=== PATIENT | female | born 1935 | race Caucasian/White ===

== ENCOUNTER 2018-11-10 04:33 | Emergency (ER) | payer MEDICARE, SELFPAY ==
[2018-11-10 04:34] VITALS: PULSE 81; RESP 18; TEMP 36.5; O2SAT 95; BMI 31.7
--- NOTE | 2018-11-10 05:03 | EKG12_ITS ---
Test Reason : COUGH Blood Pressure : / mmHG Vent. Rate : 074 BPM Atrial Rate : 074 BPM P-R Int : 238 ms QRS Dur : 090 ms QT Int : 406 ms P-R-T Axes : 044 016 049 degrees QTc Int : 450 ms Sinus rhythm with 1st degree A-V block Otherwise normal ECG Confirmed by EMIL GALVAN, BHAVYA ([id number]), editorial intern VICENTA MARCELINO ([id number]) on 11/14/2018 10:56:01 AM Referred By: SCOOTER Confirmed By:BHAVYA STEIN MD
--- NOTE | 2018-11-10 05:03 | CT_ITS ---
STUDY: CTA CHEST REASON FOR EXAM: Female, 83 years old. Dyspnea, cough x3 weeks, weakness, diagnosed with pneumonia. RADIATION DOSAGE (If Supplied By Facility): CTDIvol = ( 10.31 ) mGy, DLP = ( 410.48 ) mGycm TECHNIQUE: The examination was performed with the intravenous administration of 100CC IV Isovue 370. Post-processing of the angiographic images was performed, with multiplanar reformation and 3D reconstruction. Individualized dose optimization techniques were used for this CT. COMPARISON: Chest x-ray 12/30/2016. FINDINGS: Normal enhancement of the main pulmonary artery and right and left pulmonary arteries. Normal enhancement of the bilateral peripheral pulmonary arteries. There is no demonstrated pulmonary embolism. There is atherosclerotic tortuosity of the aortic arch and descending thoracic aorta. There is a bovine arch as a vascular variant. There is no demonstrated aortic dissection. Normal heart and pericardium. There are multiple small lymph nodes, which are normal in size and morphology most compatible with reactive lymph hyperplasia. There are calcified right hilar lymph nodes. Borderline sized right hilar lymph node of 1 cm. Normal visualized trachea and bronchi. The lungs are hyper expanded, with flattening of the hemidiaphragms. Lung parenchyma is hyperinflated, there is right-appearing mild scarring in the bases, nonspecific compression of dependent parenchyma, bilateral basilar and upper lobe bronchial wall dilatation with wall thickening. There is a small area of focal airspace disease in the right upper lobe focal atelectasis or focal air space disease with bronchograms in the left anterior lung base. Left upper lobe contains a nodular density of 0.5 x 0.4 x 0.3 cm image 133 series 2, image 130 series 605 Posterior medial of 1 x 1.3 cm. Right lower lobe calcified nodule 0.6 cm. Apical pleural thickening. Normal chest wall structures. There are degenerative changes of thoracic spine. Dextro scoliosis of the upper thoracic spine. Mild loss of vertebral body height along the superior endplate T6. No acute cortical disruption noted. There is a small hiatal hernia. CT/CTA Chest W/WO Contrast IMPRESSION: No demonstrated pulmonary embolism, aneurysm, leak or arterial dissection. Bibasilar atelectasis, atelectasis in the anterior left base versus a small infiltrate. Small infiltrate in the posterior medial right upper lobe. There is old granulomatous disease. Noncalcified nodule left upper lobe may represent myelomatous changes. Stability assessment is recommended. The?Fleischner Society pulmonary nodule recommendations 2017 guidelines Multiple Multiple nodules size: <6 mm * low-risk patients: no routine follow-up * high-risk patients: optional CT at 12 months Multiple nodules size: 6-8 mm * low-risk patients: follow-up at 3-6 months, then consider further follow-up at 18-24 months * high-risk patients: follow-up at 3-6 months, then at 18-24 months if no change Electronically Signed: Carmelita Saab MD at 6:52 EDT , Service support ,
[2018-11-10 05:24] LABS: Absolute Lymphocyte Count 2.23 X10^3/ul (0.83-4.51); Absolute Neutrophil Count 5.4 X10^3/uL (2.0-7.7); Basophil# 0.03 X10^3/uL; Basophil% 0.3 % (0-1); Eosinophil# 0.15 X10^3/uL; Eosinophils% 1.7 % (0-5); Hematocrit 38.9 % (37-47); Hemoglobin 12.9 g/dl (12.0-15.0); Lymphocyte # 2.23 X10^3/ul (4.0); Lymphocyte % 25.5 % (19-41); Mean Corp Hgb Conc 33.2 g/gl (32-36); Mean Corpuscular Hgb 30.6 pg (27.0-32.0); Mean Corpuscular Volume 92.4 fL (81-99); Mean Platelet Vol. 9.7 fl (6.2-12.0); Monocyte# 0.75 X10^3/uL; Monocyte% 8.6 % (0-10); Neutrophil # 5.41 X10^3/uL (2.7-7.7); Platelet Count 252 K/mm3 (150-450); RBC Distribution Width CV 12.7 % (11.6-14.6); RBC Distribution Width SD 41.9 fl (35.1-43.9); Red Blood Count 4.21 M/mm3 (4.2-5.4); White Blood Count 8.7 K/mm3 (4.4-11.0)
[2018-11-10 05:26] LABS: POSITIVE COUNT NO; POSITIVE DIFFERENTIAL NO; POSITIVE MORPHOLOGY NO
[2018-11-10 05:42] LABS: Anion Gap 8 (5-15); BUN 17 mg/dL (7-18); BUN/Creat Ratio 16.7 RATIO (10-20); Calcium,Total 9.2 mg/dL (8.5-10.1); Chloride 103 mmol/L (98-107); Creatinine, Serum 1.02 mg/dL (0.55-1.02); EST Glomerular Filtration Rate 55 mL/min (>60); Est Glom Filt Rate - Afr Amer 66 mL/min (>60); Estimated Creatinine Clearance 33.96 ml/min; Glucose 134 mg/dL (74-106); Potassium 3.7 mmol/L (3.5-5.1); Sodium Level 139 mmol/L (136-145)
[2018-11-10] MEDS: 0.9% Normal Saline 1,000 ML 150 ML IV (05:45)
[2018-11-10 05:52] LABS: BNP,B-Type NATRIURETIC PEPTIDE 26.4 pg/mL (0-100)
[2018-11-10 06:28] VITALS: BP 116/104; PULSE 70; RESP 16; TEMP 36.8; O2SAT 95
--- NOTE | 2018-11-10 06:50 | ED.VISSUMM ---
- ER Visit Summary Date of Service: 11/10/18 Chief Complaint: [Cough and shortness of breath] History of Present Illness: The patient is a 83 F [presents to the emergency department with complaint of cough that she said for about 3 weeks. Patient states that early on she had fever and productive yellow to green thick sputum. Patient was seen 4 days ago by her primary care physician at [facility] and diagnosed with pneumonia and started on Levaquin. Patient also had a chest x-ray at that time that was normal. Patient states she could not sleep all night because she was coughing and feeling very short of breath. She denies any chest pain. She has had some tightness across her chest. She denies recent travel or surgery. Patient tells me she was ordered an outpatient CT scan of her chest which she has not had done yet. Past medical history significant for hypertension.] Physical Examination: [HEENT-PERRLA, EOMI. Cranial nerves II through XII grossly intact. TMs clear. Mucous membranes moist. No adenopathy. Cardiovascular-regular rate and rhythm without murmur or ectopy Lungs-clear to auscultation, chest wall stable without crepitus or subcu emphysema Abdomen-normoactive bowel sounds, soft, nontender, no rebound or rigidity, no peritoneal signs. Extremities-intact ?4, normal range of motion, normal pulses, atraumatic EKG obtained arrival shows sinus rhythm with rate of 74 bpm with no acute ST segment changes.] Test Results: [CBC with differential was unremarkable. Chemistries unremarkable. Troponin was less than 0.015. BNP was 26.] CT scan of the chest was obtained to rule out PE which was negative for PE or dissection. Patient was noted to have bibasilar atelectasis, atelectasis in the inferior left base versus a small infiltrate. Small infiltrate posterior medial right upper lobe. There is old granulomatous disease. Noncalcified nodule left upper lobe. Emergency Department Course and Treatment: [Patient was dispensed an albuterol MDI and will start on prednisone.] Treatment Plan: [Patient to continue with Levaquin and will add prednisone and albuterol MDI. Patient looks well clinically. Patient will be referred to pulmonology for follow-up within next 3 to 5 days. Patient advised to return if increasing shortness of breath or condition should worsen anyway.] Disposition: [Discharged home stable condition] Impression: [Pneumonia] This note was generated with [employer] dictation software. It may contain incorrect words, spelling, and punctuation that were not noted in review of the chart prior to signing ED Disposition - Plan for ED Patient: Referrals: Divya Kramer DO [Primary Care Provider] -
--- NOTE | 2018-11-10 07:06 | ED.DEP ---
ED Disposition - Plan for ED Patient: Instructions: ED Pneumonia Adult Prescriptions: Prednisone [Deltasone] 20 mg PO BID #10 tab Referrals: Divya Kramer DO [Primary Care Provider] - Michael Noel DO [STAFF PHYSICIAN] - 3-5 Days
[2018-11-10] MEDS: predniSONE 20 MG Tablet 40 MG PO (07:15)
[2018-11-10 07:18] VITALS: BP 133/66; PULSE 65; RESP 14; O2SAT 96
== END 2018-11-10 07:24 | disposition home or self-care (01) ==
PROVIDERS: Emergency Provider Emergency Medicine
DX: J18.9 Pneumonia, unspecified organism (principal); Z79.2 Long term (current) use of antibiotics; I10 Essential (primary) hypertension; Z79.899 Other long term (current) drug therapy
CPT/HCPCS: 71275; 80048; 83880; 84484; 85025; 93005; 96360; 96361; 99285; J7030; Q9967; A4216

== ENCOUNTER → 2021-02-07 13:47 | Outpatient (CLI) | payer MEDICARE, SELFPAY ==
--- NOTE | 2021-02-07 13:54 | ART_ITS ---
Reason For Study: Claudication Procedure A bilateral lower extremity continuous wave Doppler with analog waveform analysis,segmental pressures,and ankle brachial indexes with exercise. Left Segmental Pressures Left brachial= 139mmHg. Left calf = 155mmHg. Left posterior tibial artery = 137mmHg. Left dorsalis pedis artery = 136mmHg. Left digit = 108 mmHg. The left dorsalis pedis waveforms are triphasic. The left posterior tibial artery waveforms are triphasic. Right Segmental Pressures Right brachial= 141mmHg. Right posterior tibial artery = 145mmHg. Right dorsalis pedis artery = 128mmHg. Right digit = 115 mmHg. The right dorsalis pedis waveforms are triphasic. The right posterior tibial artery waveforms are triphasic. Indices The right ankle brachial index by the dorsalis pedis is 0.91. The right ankle brachial index by the posterior tibial artery is 1.03. The right digital-brachial index is 0.82. The right post exercise ankle brachial index is 1.03. The left ankle brachial index by the dorsalis pedis is 0.96. The left ankle brachial index by the posterior tibial artery is 0.97. The left digital-brachial index is 0.77. The left post exercise ankle brachial index is 1.04. VL/Lower Ext Art Exam w/ Exercise Interpretation Summary Essentially normal bilateral lower extremity noninvasive arterial study at rest with minimal findings right PT and DP ankle-brachial index of 1.03 and 0.91 respectively and left PT and DP ankle-brachial index of 0.970.96. Bilateral posterior tibial and dorsalis pedis Doppler waveforms are triphasic. The right digital brachial index is 0.82 which is normal. The left digital brac hial index is 0.77 which is borderline Volume pulse recordings are well-maintained throughout Exercise indices on the right go from a resting 1.03 to after exercise at 1.03 and on the left from a resting 0.972 immediately after exercise at 1.04 both of which is normal Ordering Physician: Wu White Referring Physician: Wu White Performed By: Shreya Knowles RVT
== END ==
PROVIDERS: PCP Student in an Organized Health Care Education/Training Program; Referring Provider Student in an Organized Health Care Education/Training Program; Visit Provider Student in an Organized Health Care Education/Training Program
DX: I73.9 Peripheral vascular disease, unspecified (principal)
CPT/HCPCS: 93924